=== PATIENT | female | born 1995 | race Caucasian/White ===

== ENCOUNTER 2023-05-28 08:09 | Emergency (ER) | payer MEDICAID ==
[2023-05-28 08:42] LABS: APPEARANCE,URINE CLEAR (CLEAR); BILIRUBIN,URINE NEGATIVE (NEGATIVE); COLOR,URINE YELLOW; GLUCOSE,URINE NEGATIVE (NEGATIVE); KETONES,URINE NEGATIVE (NEGATIVE); LEUKOCYTE ESTERASE,URINE TRACE (NEGATIVE); NITRITE,URINE NEGATIVE (NEGATIVE); OCCULT BLOOD,URINE TRACE-INTACT (NEGATIVE); PH,URINE 7.5 (5.0-8.0); PROTEIN,URINE NEGATIVE (NEGATIVE); UROBILINOGEN,URINE 0.2 E.U./dL (0.2-1.0)
[2023-05-28 08:45] LABS: EPITHELIAL CELLS,URINE MANY /HPF; RBC,URINE 0-5 /HPF; WBC,URINE 0-5 /HPF
== END 2023-05-28 09:30 | disposition other institution (70) ==
LOC: LB.ED 08:09
DX: O46.92 Antepartum hemorrhage, unspecified, second trimester (principal); Z91.030 Bee allergy status; Z3A.27 27 weeks gestation of pregnancy
CPT/HCPCS: 81001; 99284